=== PATIENT | female | born 1985 | race Two or more races ===

== ENCOUNTER → 2017-11-28 15:09 | Outpatient (CLI) | payer MEDICAID, SELFPAY ==
[2017-11-28 16:38] LABS: Pregnancy, Serum, hCG Quali. NEGATIVE Negative (0-9 Nonpreg)
[2017-11-28 17:18] LABS: Progesterone Level 0.61 ng/mL (See Comment)
== END ==
PROVIDERS: Visit Provider Obstetrics & Gynecology
DX: Z30.9 Encounter for contraceptive management, unspecified (principal)
CPT/HCPCS: 36415; 84144; 84703